=== PATIENT | male | born 1965 | race Caucasian/White ===

== ENCOUNTER → 2016-07-11 | Outpatient (CLI) | payer BC ==
[~2016-07-11] MED LIST: DOXY20TA3 PO; GADOBUTROL 10mMol/10ml INJECTION IV ONE; HYDR-4074 PO; SALINE FLUSH 10ml SYRINGE ONE
--- NOTE | 2016-07-11 12:39 | DI ---
Indication: ITS.REASON: Z86.718 Personal history of other venous thrombosis and embolism PROCEDURE: MRI KNEE LEFT W/WO CONTRAST: Encounter: Initial 2016 Technique: Multiplanar multisequence MR imaging of the left knee was performed with and without contrast. Contrast: 8.5 mL Gadavist Findings: The prior large mass in the posterior soft tissues of the thigh adjacent to the distal femur has completely resolved. There is no measurable mass remaining. The hamstring and quadriceps muscular signal intensity is within normal limits. Small joint effusion. Osteoarthritis is seen, greatest medially with a degenerative tear of the posterior horn medial meniscus. Ligaments are grossly intact and the extensor mechanism is maintained. Postcontrast images show a couple small enhancing lymph nodes along the medial aspect of the popliteal artery. This appeared to be present on the comparison study and are slightly smaller. These are not pathologically enlarged measuring only 5 mm in short axis dimension. No enhancing masses identified. Bone marrow signal intensity is normal. No bony lesions or abnormal bone enhancement. No acute fracture. Impression: 1. Interval resolution of the large mass involving the posterior soft tissues of the distal thigh and popliteal region. No residual enhancing mass or pathologic adenopathy currently. 2. Mild to moderate osteoarthritis. .
== END ==
LOC: IMA 09:14
PROVIDERS: ATTEND Internal Medicine Hematology & Oncology
DX: M17.12 Unilateral primary osteoarthritis, left knee (principal); Z86.718 Personal history of other venous thrombosis and embolism
CPT/HCPCS: 73723; A9585

== ENCOUNTER → 2016-07-18 | Outpatient (CLI) | payer BC ==
[~2016-07-18] MED LIST changes: -GADOBUTROL 10mMol/10ml INJECTION IV ONE; -SALINE FLUSH 10ml SYRINGE ONE
[2016-07-18 11:36] LABS: BASOPHILS % (AUTO) 0.3 % (0-2); EOSINOPHILS # (AUTO) 0.1 T/MM3 (0-0.5); HGB - HEMOGLOBIN 15.4 GM/DL (13.5-17.5); IMMATURE GRANULOCYTE # (AUTO) 0.01 T/MM3 (0.00-0.03); IMMATURE GRANULOCYTE % (AUTO) 0.3 % (0.0-0.5); LYMPHOCYTES # (AUTO) 0.8 T/MM3 (1-4.8); LYMPHOCYTES % (AUTO) 22.3 % (23-45); MEAN CORPUSCULAR HGB 32.4 UUG (26-34); MEAN CORPUSCULAR HGB CONC(MCHC 33.5 GM/DL (31-37); MEAN CORPUSCULAR VOLUME 96.8 UM3 (80-100); MEAN PLATELET VOLUME 10.5 UM3 (9.4-12.4); MONOCYTES # (AUTO) 0.4 T/MM3 (0-0.8); MONOCYTES % (AUTO) 11.3 % (0-9.0); NEUTROPHILS #(AUTO)-ABSOLUTE 2.3 T/MM3 (1.8-7.7); NEUTROPHILS % (AUTO) 62.8 % (33-66); RED BLOOD COUNT 4.75 M/MM3 (4.50-5.90); WBC - WHITE BLOOD COUNT 3.7 T/MM3 (4.5-11.0)
[2016-07-18 11:42] LABS: ALBUMIN 4.5 G/DL (3.5-5.0); ALBUMIN/GLOBULIN RATIO 1.6 RATIO (1.1-2.2); ALKALINE PHOSPHATASE 60 U/L (38-126); ALT (SGPT) 58 U/L (21-72); ANION GAP 14 MEQ/L (5-15); AST (SGOT) 36 U/L (17-59); BUN/CREATININE RATIO 10 RATIO (6-26); CALCIUM 9.6 MG/DL (8.4-10.2); CHLORIDE 108 MEQ/L (98-107); CO2 - CARBON DIOXIDE 24 MEQ/L (22-30); GLOMERULAR FILTRATION RATE 78; GLUCOSE 86 MG/DL (75-110); LDH 396 U/L (313-618); MAGNESIUM 2.1 MG/DL (1.6-2.3); POTASSIUM 4.6 MEQ/L (3.6-5); SODIUM 146 MEQ/L (134-144); TOTAL PROTEIN 7.3 G/DL (6.3-8.2)
== END ==
LOC: LABN 11:15
PROVIDERS: ATTEND Internal Medicine Hematology & Oncology
DX: C83.09 Small cell B-cell lymphoma, extranodal and solid organ sites (principal); C83.38 Diffuse large B-cell lymphoma, lymph nodes of multiple sites
CPT/HCPCS: 80053; 83615; 83735; 85025